=== PATIENT | female | born 1980 | race Caucasian/White ===

== ENCOUNTER 2020-01-12 17:26 | Emergency (ER) | payer BC, SELFPAY ==
[2020-01-12 17:35] VITALS: BP 126/67; PULSE 88; RESP 14; TEMP 36.6; O2SAT 100
--- NOTE | 2020-01-12 17:39 | ED.FEMALEGU ---
HPI - Female Genitourinary General Chief complaint: Urogenital-Female Stated complaint: Pain lower left of stomach Time Seen by Provider: 01/12/20 17:46 Source: patient and RN notes reviewed Mode of arrival: ambulatory Limitations: no limitations History of Present Illness HPI Narrative: This is a 39 years old female presents to the office for an evaluation of left lower abdominal/back pain. Symptoms began 6days ago.Complains of left lower quadrant pain that wrap around to her back. Pain is worse after a prolong standing and better when she lies down. She also reports urinary frequency, urgency and vaginal discharge. Discharge is white and odorless which reminiscent her previous yeast infection. She is sexually active with one partner, denies concern for STD. Related Data Allergies Allergy/AdvReac Type Severity Reaction Status Date / Time No Known Allergies Allergy Verified 01/12/20 17:44 Review of Systems Review of Systems: Narrative: CONSTITUTIONAL: Denies fever, chills ENT: Denies congestion CARDIOVASCULAR: Denies chest pain RESPIRATORY: Denies cough GASTROINTESTINAL: Denies nausea, vomiting, diarrhea. Last BM was today; normal. GENITOURINARY: Denies vaginal lesions/sores SKIN: Denies rash MUSCULOSKELETAL: Reports left lower back without radiation to legs. NEUROLOGIC: Denies lightheaded PMFSH Surgical History Surgical History Hx of appendectomy Hx of cholecystectomy Hx of tubal ligation Social History Social History Smoking status: Current every day smoker Comments At time of signature, I agree with nursing past medical, surgical, social and family history. There is no relevant family history pertinent to the presenting complaint. Exam Narrative: Exam Narrative: GENERAL: This is a well-nourished, well-developed patient, in no apparent distress. CARDIOVASCULAR: Regular rate and rhythm without murmurs, gallops, or rubs. RESPIRATORY: Clear to auscultation. Breath sounds equal bilaterally. No wheezes, rales, or rhonchi. GASTROINTESTINAL: Abdomen soft, non-tender, nondistended. Bowel sounds are active. No hepato-splenomegaly, or palpable masses. No guarding. SKIN: warm, intact with no suspicious lesions or rash, good texture and turgor. NEURO: awake, alert, and oriented to person, place and time. There were no obvious focal neurologic abnormalities. Steady gait EXTREMITIES: No edema. BACK: Nontender without deformity or crepitance. No flank tenderness. Mccracken Coma Scale Eye Opening: Spontaneous 4 Mccracken Coma Scale Motor: Obeys Commands 6 Mccracken Coma Scale Verbal: Oriented 5 Course Vital Signs Vital signs: Vital Signs Temperature 97.8 F 01/12/20 17:35 Pulse Rate 88 01/12/20 17:35 Respiratory Rate 14 01/12/20 17:35 Blood Pressure 126/67 01/12/20 17:35 Pulse Oximetry 100 01/12/20 17:35 Temperature 97.8 F 01/12/20 17:35 Pulse Rate 88 01/12/20 17:35 Respiratory Rate 14 01/12/20 17:35 Blood Pressure 126/67 01/12/20 17:35 Pulse Oximetry 100 01/12/20 17:35 MDM - Female Genitourinary MDM Narrative Medical decision making narrative: Discharge instructions reviewed with patient, as well as provided in writing per nursing staff. The instructions also include specific and strict return/GO TO THE ER as well as f/u information. All questions have been answered, and the patient deny any further questions with discharge and discharge plan. Differential Diagnosis Differential diagnosis: Likely urinary tract infection, bacterial vaginosis, trichomoniasis, cervicitis, ovarian cyst, vaginitis, ruptured ovarian cyst, cystitis and other (Muscle skeletal pain, hernia) Lab Data Labs: Urine Glucose Negative Reference Range: Negative Urine Bilirubin Negative Reference Range: Negative Urine Ketone Negative
== END 2020-01-12 18:05 | disposition home or self-care (01) ==
PROVIDERS: Emergency Provider Nurse Practitioner
DX: N89.8 Other specified noninflammatory disorders of vagina (principal); F17.200 Nicotine dependence, unspecified, uncomplicated
CPT/HCPCS: 81003; 81025; 99213; G0463